=== PATIENT | female | born 1930 | race Caucasian/White ===

== ENCOUNTER → 2016-12-23 | Outpatient (REF) | payer MEDICARE | LOC: M LAB REF 09:04 | PROVIDERS: ATTEND Physician Assistant | DX: R30.0 Dysuria (principal) ==

== ENCOUNTER → 2017-02-27 | Outpatient (CLI) | payer MEDICARE ==
[~2017-02-27] VITALS: Ht 152.4 cm; Wt 57.6 kg
[~2017-02-27] MED LIST: ACEB200C11 PO; AMLO5TAB2 PO; ASPI1TAB PO; BENZ1TA PO; CLON0.2T PO; CRAN125T PO; FLUP25TA PO; FURO20TA2 PO; IRON18TA2 PO; PRESCAP PO; PREV30CA11 PO; PROPOFOL 200 MG/20 ML VIAL As Ordered ONE; VITA1CAP2 PO; VITA500C24 PO; ePHEDrine SULFATE 25 MG/5 ML(5MG/ML) SYRINGE As Ordered ONE; fentaNYL 100 MCG/2 ML INJECTION (J3010) As Ordered ONE
[2017-02-27] MEDS: NS 1,000 ML IV SCH ×2 (08:18→08:19)
--- NOTE | 2017-02-27 08:37 | ROOR ---
Patient Name: Day Beasley Procedure Date: 02/27/2017 8:25 AM Date of : 1930 Age: 86 Room: [facility] Gender: Female Note Status: Finalized Procedure: Upper GI endoscopy Indications: Iron deficiency anemia Providers: Pierce Cervantes MD Referring MD: Mary Beth Munoz DO Requesting Provider: Medicines: Monitored Anesthesia Care Complications: No immediate complications. Procedure: Pre-Anesthesia Assessment: - The heart rate, respiratory rate, oxygen saturations, blood pressure, adequacy of pulmonary ventilation, and response to care were monitored throughout the procedure. The Endoscope was introduced through the mouth, and advanced to the second part of duodenum. The upper GI endoscopy was accomplished without difficulty. The patient tolerated the procedure well. Findings: The Z-line was regular and was found 35 cm from the incisors. No other significant abnormalities were identified in a careful examination of the stomach. The exam of the duodenum was otherwise normal. Impression: - Z-line regular, 35 cm from the incisors. - No specimens collected. - The examination was otherwise normal. Recommendation: - Patient has a contact number available for emergencies. The signs and symptoms of potential delayed complications were discussed with the patient. Return to normal activities tomorrow. Written discharge instructions were provided to the patient. - Discharge patient to home. - Resume previous diet. - Continue present medications. - Return to referring physician. - The findings and recommendations were discussed with the patient's family. Pierce Cervantes MD Pierce Cervantes MD 02/27/2017 8:37:18 AM This report has been signed electronically. Number of Addenda: 0 Note Initiated On: 02/27/2017 8:25 AM Estimated Blood Loss: Estimated blood loss: none.
--- NOTE | 2017-02-27 09:06 | ROOR ---
Patient Name: Day Beasley Procedure Date: 02/27/2017 8:27 AM Date of : 1930 Age: 86 Room: [facility] Gender: Female Note Status: Finalized Procedure: Colonoscopy to Cecum + Cold Snare Polypectomy + Hemoclips. Indications: Iron deficiency anemia Providers: Pierce Cervantes MD Referring MD: Mary Beth Munoz DO Requesting Provider: Medicines: Monitored Anesthesia Care Complications: No immediate complications. Procedure: Pre-Anesthesia Assessment: - The heart rate, respiratory rate, oxygen saturations, blood pressure, adequacy of pulmonary ventilation, and response to care were monitored throughout the procedure. The Colonoscope was introduced through the anus and advanced to the cecum, identified by appendiceal orifice and ileocecal valve. The colonoscopy was performed without difficulty. The patient tolerated the procedure well. The quality of the bowel preparation was excellent. Findings: The perianal and digital rectal examinations were normal. Non-bleeding internal hemorrhoids were found during retroflexion. The hemorrhoids were small and Grade I (internal hemorrhoids that do not prolapse). Multiple small and large-mouthed diverticula were found in the recto-sigmoid colon, sigmoid colon and descending colon. A large polyp was found in the cecum. The polyp was carpet-like. The polyp was removed with a cold snare. Polyp resection was incomplete. The resected tissue was retrieved. To prevent bleeding after the polypectomy, two hemostatic clips were successfully placed (MR conditional). There was no bleeding at the end of the procedure. The exam was otherwise without abnormality on direct and retroflexion views. Impression: - Non-bleeding internal hemorrhoids. - Diverticulosis in the recto-sigmoid colon, in the sigmoid colon and in the descending colon. - One large polyp in the cecum, removed with a cold snare. Incomplete resection. Resected tissue retrieved. Clips (MR conditional) were placed. - The examination was otherwise normal on direct and retroflexion views. - The exam was otherwise normal to the cecum. Recommendation: - Patient has a contact number available for emergencies. The signs and symptoms of potential delayed complications were discussed with the patient. Return to normal activities tomorrow. Written discharge instructions were provided to the patient. - Discharge patient to home. - Continue present medications. - Await pathology results. - Telephone GI clinic for pathology results in 1 week. - Repeat colonoscopy for surveillance based on pathology results. - The findings and recommendations were discussed with the patient's family. Pierce Cervantes MD Pierce Cervantes MD 02/27/2017 9:06:40 AM This report has been signed electronically. Number of Addenda: 0 Note Initiated On: 02/27/2017 8:27 AM Estimated Blood Loss: Estimated blood loss: none.
[2017-02-27 09:29] VITALS: BP 125/69
== END ==
LOC: M OPP 07:51
PROVIDERS: ATTEND Internal Medicine Gastroenterology
DX: D50.9 Iron deficiency anemia, unspecified (principal); K64.0 First degree hemorrhoids; K57.30 Diverticulosis of large intestine without perforation or abscess without bleeding; D12.0 Benign neoplasm of cecum; Z79.899 Other long term (current) drug therapy; Z79.82 Long term (current) use of aspirin; I10 Essential (primary) hypertension; R12 Heartburn; Z88.8 Allergy status to other drugs, medicaments and biological substances; Z88.5 Allergy status to narcotic agent; Z91.041 Radiographic dye allergy status; Z72.0 Tobacco use
CPT/HCPCS: 43235; 45385; 88305; 99156; 99157; J3010

== ENCOUNTER → 2017-07-31 | Outpatient (CLI) | payer MEDICARE ==
[~2017-07-31] MED LIST changes: +BENZ-52 PO; -BENZ1TA PO; +PREV1CAP PO; -PREV30CA11 PO; -PROPOFOL 200 MG/20 ML VIAL As Ordered ONE; +TYLE500T78 PO; -ePHEDrine SULFATE 25 MG/5 ML(5MG/ML) SYRINGE As Ordered ONE; -fentaNYL 100 MCG/2 ML INJECTION (J3010) As Ordered ONE
--- NOTE | 2017-07-31 09:24 | REPMRS ---
Patient History The patient states she had a clinical breast exam in 04/15 Patient is postmenopausal. Family history of ovarian cancer in sister at age 67, endometrial cancer in sister at age 73, and ovarian cancer in mother at age 98. Benign excisional biopsy of both breasts. Took unspecified hormones for 20 years. Digital Woman Screen Mammo: July 31, 2017 - Exam #: [id number] Bilateral CC and MLO view(s) were taken. Technologist: Pao Corona, Technologist Prior study comparison: June 27, 2016, digital woman screen mammo performed at [facility]. June 26, 2015, digital woman screen mammo performed at [facility]. June 25, 2014, bilateral bilat screen digital mammo, performed at [facility] ([facility]). FINDINGS: There are scattered fibroglandular densities. There has been no change in the appearance of the mammogram from the prior studies. There is a mild amount of scattered fibroglandular density which is fairly symmetric. There is no interval development of dominant mass, architectural distortion, or clustered microcalcification suggestive of malignancy. ASSESSMENT: BI-RADS/ACR category 1 mammogram. Negative. Recommendation Routine screening mammogram in 1 year (for women over age 40). This mammogram was interpreted with the aid of an FDA-approved computer-aided dectection system. Electronically Signed By: Mayo Sullivan MD 07/31/17 0924
== END ==
LOC: M WHC 07:59
PROVIDERS: ATTEND Obstetrics & Gynecology
DX: Z12.31 Encounter for screening mammogram for malignant neoplasm of breast (principal)

== ENCOUNTER 2017-09-11 10:59 | Day surgery (SDC) | payer MEDICARE ==
[~2017-09-11] VITALS: Ht 152.4 cm; Wt 54.9 kg
[2017-09-11] MEDS ORDERED: NS 1,000 ML IV ONE (11:15)
[2017-09-11] MEDS ORDERED: PROPOFOL 200 MG/20 ML VIAL As Ordered ONE (12:46)
[2017-09-11] MEDS ORDERED: LIDOCAINE 2% INJ 100 MG/5 ML SDV (FOR ANES.) As Ordered ONE (12:46)
--- NOTE | 2017-09-11 13:11 | ROOR ---
Patient Name: Day Bealsey Procedure Date: 09/11/2017 12:22 PM Date of : 1930 Age: 87 Room: [facility] Gender: Female Note Status: Finalized Procedure: Total Colonoscopy to Cecum + Cold Snare Polypectomy + Biopsy Polypectomy Indications: High risk colon cancer surveillance: Personal history of colonic polyps, High risk colon cancer surveillance: Personal history of adenoma with villous component Providers: Pierce Cervantes MD Referring MD: Mary Beth Munoz DO Requesting Provider: Medicines: Monitored Anesthesia Care Complications: No immediate complications. Procedure: Pre-Anesthesia Assessment: - The heart rate, respiratory rate, oxygen saturations, blood pressure, adequacy of pulmonary ventilation, and response to care were monitored throughout the procedure. The Colonoscope was introduced through the anus and advanced to the cecum, identified by appendiceal orifice and ileocecal valve. The colonoscopy was performed without difficulty. The patient tolerated the procedure well. The quality of the bowel preparation was excellent. Findings: The perianal and digital rectal examinations were normal. Non-bleeding internal hemorrhoids were found during retroflexion. The hemorrhoids were small and Grade I (internal hemorrhoids that do not prolapse). One medium nodule was found at the anus. Biopsies were taken with a cold forceps for histology. A small polyp was found in the rectum. The polyp was sessile. The polyp was removed with a cold snare. Resection and retrieval were complete. A small polyp was found at 40 cm proximal to the anus. The polyp was sessile. The polyp was removed with a cold snare. Resection and retrieval were complete. Two carpet-like polyps were found in the proximal ascending colon and cecum. The polyps were medium in size. These polyps were removed with a cold snare. Polyp resection was incomplete. The resected tissue was retrieved. The exam was otherwise without abnormality on direct and retroflexion views. Impression: - Non-bleeding internal hemorrhoids. - Nodule at the anus. Biopsied. - One small polyp in the rectum, removed with a cold snare. Resected and retrieved. - One small polyp at 40 cm proximal to the anus, removed with a cold snare. Resected and retrieved. - Two medium polyps in the proximal ascending colon and in the cecum, removed with a cold snare. Incomplete resection. Resected tissue retrieved. - The examination was otherwise normal on direct and retroflexion views. - The exam was otherwise normal to the cecum. Recommendation: - Patient has a contact number available for emergencies. The signs and symptoms of potential delayed complications were discussed with the patient. Return to normal activities tomorrow. Written discharge instructions were provided to the patient. - High fiber diet. - Discharge patient to home. - Continue present medications. - Await pathology results. - Telephone GI clinic for pathology results in 1 week. - Repeat colonoscopy for surveillance based on pathology results. Pierce Cervantes MD Pierce Cervantes MD 09/11/2017 1:11:03 PM This report has been signed electronically. Number of Addenda: 0 Note Initiated On: 09/11/2017 12:22 PM Estimated Blood Loss: Estimated blood loss: none.
[2017-09-11 13:19] VITALS: BP 173/74
== END 2017-09-11 14:02 | disposition home or self-care (01) ==
LOC: M OPP 10:59
PROVIDERS: ATTEND Internal Medicine Gastroenterology
DX: D12.0 Benign neoplasm of cecum (principal); D12.8 Benign neoplasm of rectum; K57.30 Diverticulosis of large intestine without perforation or abscess without bleeding; K64.0 First degree hemorrhoids; I10 Essential (primary) hypertension; Z86.010 Personal history of colon polyps; Z79.82 Long term (current) use of aspirin; Z79.899 Other long term (current) drug therapy; Z87.891 Personal history of nicotine dependence

== ENCOUNTER 2017-09-26 09:45 | Outpatient (CLI) | payer MEDICARE ==
[~2017-09-26] VITALS: Ht 152.4 cm; Wt 55.9 kg
[2017-09-26] MEDS ORDERED: FUROSEMIDE 20 MG/2 ML VIAL (J1940) IV SCH (10:00)
[2017-09-26 10:13] VITALS: BP 126/60
== END 2017-09-26 17:58 | disposition home or self-care (01) ==
LOC: M OPCLI4PR 09:45 → M MS4PR 09:49 → M OPCLI4PR 17:58
PROVIDERS: ATTEND Internal Medicine
DX: D64.9 Anemia, unspecified (principal); Z88.5 Allergy status to narcotic agent; Z91.041 Radiographic dye allergy status; Z88.8 Allergy status to other drugs, medicaments and biological substances; Z79.82 Long term (current) use of aspirin; Z79.899 Other long term (current) drug therapy
CPT/HCPCS: 36430; 86850; 86900; 86901; 86920; J1940; P9016

== ENCOUNTER → 2017-12-04 | Outpatient (REF) | payer MEDICARE ==
[2017-12-04 19:20] LABS: IRON (FE) 77 UG/DL (50-170); PERCENT SATURATION 17.9 % (13.2-45.0); TOTAL IRON BINDING CAPACITY 431 UG/DL (250-450)
== END ==
LOC: M LAB REF 17:41
DX: D64.9 Anemia, unspecified (principal)
CPT/HCPCS: 83550